=== PATIENT | male | born 1980 | race Caucasian/White ===

== ENCOUNTER 2021-02-27 21:53 | Emergency (ER) | payer OTHER ==
[~2021-02-27] VITALS: Ht 180.3 cm; Wt 79.5 kg
[~2021-02-27 21:53] MED LIST: CEPHALEXIN500 M1 PO; NO HOME MEDICATIONS
[2021-02-27 22:22] VITALS: BP 122/73; PULSE 82; TEMP 97.8
== END 2021-02-27 23:10 | disposition home or self-care (01) ==
LOC: COL.ER 21:53
DX: S01.112A Laceration without foreign body of left eyelid and periocular area, initial encounter (principal); Z23 Encounter for immunization; W20.8XXA Other cause of strike by thrown, projected or falling object, initial encounter; Y92.008 Other place in unspecified non-institutional (private) residence as the place of occurrence of the external cause

== ENCOUNTER 2021-11-25 00:49 | Emergency (ER) | payer OTHER ==
[~2021-11-25] VITALS: Ht 180.3 cm; Wt 79.5 kg
[2021-11-25 00:51] VITALS: TEMP 97.1
[2021-11-25 01:25] VITALS: BP 124/78; PULSE 76
== END 2021-11-25 01:25 | disposition home or self-care (01) ==
LOC: COL.ER 00:49
DX: T15.01XA Foreign body in cornea, right eye, initial encounter (principal); Z28.310 Unvaccinated for COVID-19; X58.XXXA Exposure to other specified factors, initial encounter